=== PATIENT | male | born 1950 | race Caucasian/White ===

== ENCOUNTER 2022-05-09 18:27 | Inpatient (IN) | payer MEDICARE, OTHER ==
[2022-05-09 19:26] LABS: #Eosinphils 0.1 thou/uL (0.0-0.7); #Monocytes 0.6 thou/uL (0.11-0.59); #Neutrophils 5.2 thou/uL (1.40-6.50); %Basophils 0.4 % (0.0-1.0); %Lymphocytes 24.8 % (21.0-51.0); %Monocytes 7.9 % (0.0-10.0); %Neutrophils 65.9 % (42.0-75.0); Hemoglobin 14.9 g/dL (14.0-18.0); Mean Corpuscular HGB CONC 32.6 g/dL (32.0-36.0); Mean Corpuscular Hemoglobin 33.6 pg (27.0-31.0); Mean Platelet Volume 8.4 fL (7.4-10.4); Platelet Count 102 thou/uL (130-400); RBC Distribution Width 11.9 % (11.5-14.5); Red Blood Cell (RBC) Count 4.45 mill/uL (4.70-6.10); White Blood Cell (WBC) Count 7.9 thou/uL (4.8-10.8)
[2022-05-09 19:33] LABS: INR-International Normal Ratio 1.2; PTT 25.2 sec (22.9-36.1); Prothrombin Time 15.4 sec (12.0-14.7)
[2022-05-09] MEDS ORDERED: Heparin 25,000 units/D5W 500 ML ONE (19:39)
[2022-05-09] MEDS ORDERED: Heparin 10,000 UNITS/ 10 ML VIAL ONE (19:39)
[2022-05-09 19:40] LABS: MDiff Complete? YES; Macrocytosis SLIGHT = 6-15 cells (100X) (0-5/hpf); Platelet Morphology Comment Appears Decreased
[2022-05-09 19:54] LABS: ALT (SGPT) 18 U/L (8-55); AST (SGOT) 20 U/L (5-34); Albumin 3.8 g/dL (3.4-4.8); Alkaline Phosphatase 39 U/L (40-110); Anion Gap 14 mmol/L (10-20); BUN (Urea Nitrogen) 10 mg/dL (8.4-25.7); Bilirubin, Total 1.1 mg/dL (0.2-1.2); Calc. Creatinine Clearance 0 mL/min (70-130); Calcium 8.8 mg/dL (7.8-10.44); Carbon Dioxide 24 mmol/L (23-31); Chloride 106 mmol/L (98-107); Estimated GFR 71; Globulin 2.7 g/dL (2.4-3.5); Glucose 93 mg/dL (83-110); Potassium 4.1 mmol/L (3.5-5.1); Protein, Total 6.5 g/dL (5.8-8.1); Sodium 140 mmol/L (136-145)
[2022-05-09] MEDS ORDERED: Ondansetron PF 4 MG/2 ML Vial IVP PRN (19:59)
[2022-05-09 20:16] LABS: CKMB 1.9 ng/mL (0-6.6)
[2022-05-09 21:09] LABS: SARS-CoV-2 NAA Rapid Test Not Detected (NotDetected)
[2022-05-09 22:14] LABS: Troponin I 0.249 ng/mL (< 0.028)
[2022-05-09 22:46] VITALS: BMI 37.3
[2022-05-10] MEDS ORDERED: Heparin 10,000 UNITS/ 10 ML VIAL SLOW IVP SCH (00:15)
[2022-05-10 02:15] LABS: #Eosinphils 0.2 thou/uL (0.0-0.7); #Lymphocytes 2.5 thou/uL (1.20-3.40); #Monocytes 0.9 thou/uL (0.11-0.59); %Basophils 0.5 % (0.0-1.0); %Eosinophils 2.1 % (0.0-10.0); %Lymphocytes 33.3 % (21.0-51.0); %Monocytes 11.2 % (0.0-10.0); %Neutrophils 52.8 % (42.0-75.0); Hemoglobin 13.6 g/dL (14.0-18.0); Mean Corpuscular Hemoglobin 33.6 pg (27.0-31.0); Mean Platelet Volume 8.6 fL (7.4-10.4); Platelet Count 94 thou/uL (130-400); RBC Distribution Width 11.8 % (11.5-14.5); Red Blood Cell (RBC) Count 4.04 mill/uL (4.70-6.10); White Blood Cell (WBC) Count 7.5 thou/uL (4.8-10.8)
[2022-05-10 02:28] LABS: Anion Gap 11 mmol/L (10-20); BUN (Urea Nitrogen) 12 mg/dL (8.4-25.7); Calc. Creatinine Clearance 120 mL/min (70-130); Calcium 8.7 mg/dL (7.8-10.44); Carbon Dioxide 23 mmol/L (23-31); Chloride 108 mmol/L (98-107); Estimated GFR 82; Glucose 108 mg/dL (83-110); Potassium 3.4 mmol/L (3.5-5.1); Sodium 139 mmol/L (136-145)
[2022-05-10 02:35] LABS: PTT Greater than 250.0 sec (22.9-36.1)
[2022-05-10] MEDS ORDERED: Potassium Chloride 20 MEQ TAB PO SCH (07:30)
[2022-05-10] MEDS: Hydrochlorothiazide 25 MG TAB PO SCH ×2 (08:51→22:04)
[2022-05-10] MEDS: Heparin 25,000 units/D5W 500 ML IVPB SCH ×2 (08:55→22:13)
[2022-05-10] MEDS: hydrALAZINE 20 MG/ML VIAL SLOW IVP PRN (11:08)
[2022-05-10] MEDS: Acetaminophen 325 MG TAB PO PRN ×2 (16:08→22:12)
[2022-05-10] MEDS: Fenofibrate Nanocrystallized 145 MG TAB PO SCH (22:04)
[2022-05-10] MEDS: Triamcinolone 0.1% Cream 15 GM TUBE TOP SCH (22:11)
[2022-05-11 04:10] LABS: #Eosinphils 0.1 thou/uL (0.0-0.7); #Lymphocytes 1.9 thou/uL (1.20-3.40); #Monocytes 1.1 thou/uL (0.11-0.59); #Neutrophils 7.2 thou/uL (1.40-6.50); %Basophils 0.3 % (0.0-1.0); %Eosinophils 0.6 % (0.0-10.0); %Lymphocytes 18.5 % (21.0-51.0); %Monocytes 10.7 % (0.0-10.0); Hemoglobin 14.4 g/dL (14.0-18.0); Mean Corpuscular HGB CONC 32.8 g/dL (32.0-36.0); Mean Corpuscular Hemoglobin 33.1 pg (27.0-31.0); Mean Platelet Volume 8.6 fL (7.4-10.4); Platelet Count 110 thou/uL (130-400); RBC Distribution Width 11.8 % (11.5-14.5); Red Blood Cell (RBC) Count 4.34 mill/uL (4.70-6.10); White Blood Cell (WBC) Count 10.3 thou/uL (4.8-10.8)
[2022-05-11 04:12] LABS: Anion Gap 14 mmol/L (10-20); BUN (Urea Nitrogen) 14 mg/dL (8.4-25.7); Calc. Creatinine Clearance 110 mL/min (70-130); Calcium 8.8 mg/dL (7.8-10.44); Carbon Dioxide 22 mmol/L (23-31); Chloride 107 mmol/L (98-107); Estimated GFR 74; Glucose 112 mg/dL (83-110); Potassium 3.6 mmol/L (3.5-5.1); Sodium 139 mmol/L (136-145)
[2022-05-11] MEDS: Atorvastatin Calcium 10 MG TAB PO SCH (08:49)
[2022-05-11] MEDS: Hydrochlorothiazide 25 MG TAB PO SCH ×3 (08:49→22:00)
[2022-05-11] MEDS: Finasteride 5 MG TAB PO SCH (08:50)
[2022-05-11] MEDS: Donepezil HCl 10 MG TAB PO SCH (08:50)
[2022-05-11] MEDS: Tamsulosin HCl 0.4 MG CAP PO SCH (08:50)
[2022-05-11] MEDS: Triamcinolone 0.1% Cream 15 GM TUBE TOP SCH ×2 (08:56→23:04)
[2022-05-11] MEDS: Acetaminophen 325 MG TAB PO PRN ×2 (09:07→17:41)
[2022-05-11] MEDS: Oxybutynin ER 5 MG TAB PO SCH (09:09)
[2022-05-11] MEDS: risperiDONE 0.25 MG TAB PO SCH (09:09)
[2022-05-11] MEDS: hydrALAZINE 20 MG/ML VIAL SLOW IVP PRN (09:27)
[2022-05-11] MEDS: Heparin 25,000 units/D5W 500 ML IVPB SCH (11:50)
[2022-05-11] MEDS ORDERED: Tranexamic Acid 1,000 MG/10 ML VIAL FS SCH (17:15)
[2022-05-11] MEDS: Fenofibrate Nanocrystallized 145 MG TAB PO SCH (21:59)
[2022-05-11] MEDS: Amlodipine 5 MG TAB PO SCH (22:00)
[2022-05-12] MEDS: Heparin 25,000 units/D5W 500 ML IVPB SCH ×2 (01:31→15:49)
[2022-05-12 04:25] LABS: #Basophils 0.1 thou/uL (0.0-0.2); #Lymphocytes 1.4 thou/uL (1.20-3.40); #Monocytes 1.1 thou/uL (0.11-0.59); #Neutrophils 9.7 thou/uL (1.40-6.50); %Eosinophils 0.3 % (0.0-10.0); %Lymphocytes 11.4 % (21.0-51.0); %Monocytes 8.9 % (0.0-10.0); %Neutrophils 78.4 % (42.0-75.0); Hemoglobin 14.3 g/dL (14.0-18.0); Mean Corpuscular HGB CONC 33.7 g/dL (32.0-36.0); Mean Corpuscular Hemoglobin 33.8 pg (27.0-31.0); Mean Platelet Volume 9.6 fL (7.4-10.4); Platelet Count 108 thou/uL (130-400); Red Blood Cell (RBC) Count 4.23 mill/uL (4.70-6.10); White Blood Cell (WBC) Count 12.3 thou/uL (4.8-10.8)
[2022-05-12 04:42] LABS: Anion Gap 12 mmol/L (10-20); BUN (Urea Nitrogen) 15 mg/dL (8.4-25.7); Calc. Creatinine Clearance 127 mL/min (70-130); Calcium 9.2 mg/dL (7.8-10.44); Carbon Dioxide 21 mmol/L (23-31); Chloride 104 mmol/L (98-107); Estimated GFR 87; Glucose 103 mg/dL (83-110); Potassium 3.4 mmol/L (3.5-5.1); Sodium 134 mmol/L (136-145)
[2022-05-12] MEDS: Tamsulosin HCl 0.4 MG CAP PO SCH (09:10)
[2022-05-12] MEDS: Finasteride 5 MG TAB PO SCH (09:10)
[2022-05-12] MEDS: Hydrochlorothiazide 25 MG TAB PO SCH ×2 (09:10→20:44)
[2022-05-12] MEDS: Atorvastatin Calcium 10 MG TAB PO SCH (09:11)
[2022-05-12] MEDS: Donepezil HCl 10 MG TAB PO SCH (09:11)
[2022-05-12] MEDS: risperiDONE 0.25 MG TAB PO SCH (09:11)
[2022-05-12] MEDS: Oxybutynin ER 5 MG TAB PO SCH (11:55)
[2022-05-12] MEDS: Acetaminophen 325 MG TAB PO PRN ×2 (12:01→20:49)
[2022-05-12] MEDS: Triamcinolone 0.1% Cream 15 GM TUBE TOP SCH ×2 (15:50→20:52)
[2022-05-12] MEDS: Amlodipine 5 MG TAB PO SCH (20:44)
[2022-05-12] MEDS: Fenofibrate Nanocrystallized 145 MG TAB PO SCH (20:44)
[2022-05-13] MEDS: Heparin 25,000 units/D5W 500 ML IVPB SCH (06:12)
[2022-05-13] MEDS: Acetaminophen 325 MG TAB PO PRN ×3 (06:39→16:21)
[2022-05-13] MEDS: Atorvastatin Calcium 10 MG TAB PO SCH (07:48)
[2022-05-13] MEDS: Donepezil HCl 10 MG TAB PO SCH (07:48)
[2022-05-13] MEDS: Finasteride 5 MG TAB PO SCH (07:49)
[2022-05-13] MEDS: Tamsulosin HCl 0.4 MG CAP PO SCH (07:49)
[2022-05-13] MEDS: Hydrochlorothiazide 25 MG TAB PO SCH ×2 (07:49→20:41)
[2022-05-13] MEDS: Oxybutynin ER 5 MG TAB PO SCH (07:50)
[2022-05-13] MEDS: risperiDONE 0.25 MG TAB PO SCH (07:50)
[2022-05-13] MEDS: Triamcinolone 0.1% Cream 15 GM TUBE TOP SCH ×2 (07:51→20:43)
[2022-05-13] MEDS ORDERED: Rivaroxaban 10 MG TAB PO SCH (10:15)
[2022-05-13] MEDS ORDERED: Rivaroxaban 15 MG TAB PO SCH (10:45)
[2022-05-13] MEDS: Rivaroxaban 15 MG TAB PO SCH (20:42)
[2022-05-13] MEDS: Amlodipine 5 MG TAB PO SCH (20:42)
[2022-05-13] MEDS: Fenofibrate Nanocrystallized 145 MG TAB PO SCH (20:43)
[2022-05-13] MEDS: Polyethylene Glycol 3350 17 GM Packet PO SCH ×2 (20:43→20:46)
[2022-05-14 04:08] LABS: #Eosinphils 0.1 thou/uL (0.0-0.7); #Lymphocytes 1.7 thou/uL (1.20-3.40); #Monocytes 1.2 thou/uL (0.11-0.59); #Neutrophils 8.8 thou/uL (1.40-6.50); %Eosinophils 1.1 % (0.0-10.0); %Lymphocytes 14.3 % (21.0-51.0); %Monocytes 10.4 % (0.0-10.0); %Neutrophils 74.1 % (42.0-75.0); Hemoglobin 13.4 g/dL (14.0-18.0); Mean Corpuscular HGB CONC 33.4 g/dL (32.0-36.0); Mean Corpuscular Hemoglobin 33.7 pg (27.0-31.0); Mean Platelet Volume 9.3 fL (7.4-10.4); Platelet Count 153 thou/uL (130-400); RBC Distribution Width 11.9 % (11.5-14.5); Red Blood Cell (RBC) Count 3.98 mill/uL (4.70-6.10); White Blood Cell (WBC) Count 11.9 thou/uL (4.8-10.8)
[2022-05-14 07:19] LABS: Anion Gap 14 mmol/L (10-20); BUN (Urea Nitrogen) 18 mg/dL (8.4-25.7); Calc. Creatinine Clearance 109 mL/min (70-130); Calcium 9.7 mg/dL (7.8-10.44); Carbon Dioxide 23 mmol/L (23-31); Chloride 99 mmol/L (98-107); Estimated GFR 73; Glucose 105 mg/dL (83-110); Potassium 3.6 mmol/L (3.5-5.1); Sodium 132 mmol/L (136-145)
[2022-05-14] MEDS: Donepezil HCl 10 MG TAB PO SCH (07:59)
[2022-05-14] MEDS: Hydrochlorothiazide 25 MG TAB PO SCH ×2 (07:59→20:12)
[2022-05-14] MEDS: Tamsulosin HCl 0.4 MG CAP PO SCH (08:01)
[2022-05-14] MEDS: Atorvastatin Calcium 10 MG TAB PO SCH (08:01)
[2022-05-14] MEDS: Oxybutynin ER 5 MG TAB PO SCH (08:02)
[2022-05-14] MEDS: risperiDONE 0.25 MG TAB PO SCH (08:02)
[2022-05-14] MEDS: Finasteride 5 MG TAB PO SCH (08:02)
[2022-05-14] MEDS: Rivaroxaban 15 MG TAB PO SCH ×2 (08:03→20:15)
[2022-05-14] MEDS: Polyethylene Glycol 3350 17 GM Packet PO SCH ×2 (08:03→20:12)
[2022-05-14] MEDS: Triamcinolone 0.1% Cream 15 GM TUBE TOP SCH ×2 (08:04→20:22)
[2022-05-14] MEDS: Acetaminophen 325 MG TAB PO PRN ×2 (08:05→15:17)
[2022-05-14 13:34] VITALS: BP 154/80
[2022-05-14] MEDS ORDERED: Cyanocobalamin 1000 MCG/ML VIAL IM SCH (13:45)
[2022-05-14 16:39] LABS: Bacteria/HPF None Seen HPF (None Seen); Bilirubin Negative (Negative); Blood, Urine Negative (Negative); Clarity Clear (Clear); Glucose, Urine (Dipstick) Normal (Negative); Ketone, Urine Negative (Negative); Leukocyte Negative Leu/uL (Negative); Nitrite Negative (Negative); Protein, Urine (Dipstick) Negative (Neg-Trace); RBC/HPF 0-3 HPF (0-3); Specific Gravity, Urine 1.015 (1.002-1.036); Squamous Epithelial None Seen HPF (0-3); Urobilinogen 6 mg/dL (Less than 2); WBC/HPF 0-3 HPF (0-3)
[2022-05-14 16:43] LABS: Urine Culture Reflex No No
[2022-05-14] MEDS: Amlodipine 5 MG TAB PO SCH (20:11)
[2022-05-14] MEDS: Fenofibrate Nanocrystallized 145 MG TAB PO SCH (20:12)
[2022-05-15 04:06] LABS: #Basophils 0.1 thou/uL (0.0-0.2); #Eosinphils 0.1 thou/uL (0.0-0.7); #Lymphocytes 1.6 thou/uL (1.20-3.40); #Monocytes 1.2 thou/uL (0.11-0.59); #Neutrophils 8.3 thou/uL (1.40-6.50); %Basophils 0.5 % (0.0-1.0); %Eosinophils 0.9 % (0.0-10.0); %Lymphocytes 14.5 % (21.0-51.0); %Monocytes 10.7 % (0.0-10.0); %Neutrophils 73.4 % (42.0-75.0); Hemoglobin 13.3 g/dL (14.0-18.0); Mean Corpuscular HGB CONC 33.5 g/dL (32.0-36.0); Mean Corpuscular Hemoglobin 33.7 pg (27.0-31.0); Mean Platelet Volume 8.1 fL (7.4-10.4); Platelet Count 203 thou/uL (130-400); RBC Distribution Width 11.8 % (11.5-14.5); Red Blood Cell (RBC) Count 3.96 mill/uL (4.70-6.10); White Blood Cell (WBC) Count 11.3 thou/uL (4.8-10.8)
[2022-05-15 04:26] LABS: Anion Gap 13 mmol/L (10-20); BUN (Urea Nitrogen) 21 mg/dL (8.4-25.7); Calc. Creatinine Clearance 123 mL/min (70-130); Calcium 9.5 mg/dL (7.8-10.44); Carbon Dioxide 25 mmol/L (23-31); Chloride 98 mmol/L (98-107); Estimated GFR 84; Glucose 110 mg/dL (83-110); Potassium 3.5 mmol/L (3.5-5.1); Sodium 132 mmol/L (136-145)
[2022-05-15] MEDS: Acetaminophen 325 MG TAB PO PRN (06:51)
[2022-05-15 07:11] VITALS: TEMP 98.2
[2022-05-15] MEDS: Atorvastatin Calcium 10 MG TAB PO SCH (08:53)
[2022-05-15] MEDS: Donepezil HCl 10 MG TAB PO SCH (08:53)
[2022-05-15] MEDS: Oxybutynin ER 5 MG TAB PO SCH (08:53)
[2022-05-15] MEDS: risperiDONE 0.25 MG TAB PO SCH (08:53)
[2022-05-15] MEDS: Tamsulosin HCl 0.4 MG CAP PO SCH (08:53)
[2022-05-15] MEDS: Polyethylene Glycol 3350 17 GM Packet PO SCH (08:54)
[2022-05-15] MEDS: Finasteride 5 MG TAB PO SCH (08:54)
[2022-05-15] MEDS: Rivaroxaban 15 MG TAB PO SCH (08:54)
[2022-05-15] MEDS: Hydrochlorothiazide 25 MG TAB PO SCH (08:54)
[2022-05-15] MEDS: Triamcinolone 0.1% Cream 15 GM TUBE TOP SCH (08:54)
== END 2022-05-15 14:50 | disposition home health service (06) | DRG 164 ==
LOC: ERS 18:27 → IMCU/EMU 20:02
PROVIDERS: ADMIT Internal Medicine; ATTEND Student in an Organized Health Care Education/Training Program
PROC: 0W33XZZ Control Bleeding in Oral Cavity and Throat, External Approach (ICD-10-PCS; principal; 2022-05-12)
DX: I26.92 Saddle embolus of pulmonary artery without acute cor pulmonale (principal); D68.51 Activated protein C resistance; I24.8 Other forms of acute ischemic heart disease; R00.1 Bradycardia, unspecified; D69.6 Thrombocytopenia, unspecified; I10 Essential (primary) hypertension; K21.9 Gastro-esophageal reflux disease without esophagitis; F03.90 Unspecified dementia, unspecified severity, without behavioral disturbance, psychotic disturbance, mood disturbance, and anxiety; N40.1 Benign prostatic hyperplasia with lower urinary tract symptoms; R33.8 Other retention of urine; Z20.822 Contact with and (suspected) exposure to COVID-19; K59.00 Constipation, unspecified; E78.00 Pure hypercholesterolemia, unspecified; Z86.711 Personal history of pulmonary embolism; Z85.038 Personal history of other malignant neoplasm of large intestine; Z90.49 Acquired absence of other specified parts of digestive tract; Z98.49 Cataract extraction status, unspecified eye; Z80.41 Family history of malignant neoplasm of ovary; Z80.52 Family history of malignant neoplasm of bladder; Z86.718 Personal history of other venous thrombosis and embolism; Z91.14 Patient's other noncompliance with medication regimen
CPT/HCPCS: 36415; 71045; 80048; 80053; 81001; 82553; 83880; 84484; 85025; 85610; 85730; 93005; 93306; 96374; J0360; J1644; J2405; U0002

== ENCOUNTER 2022-05-15 22:20 | Emergency (ER) | payer MEDICARE ==
[~2022-05-15 22:20] MED LIST: Iopamidol-370 76% 500 ML 1 ML ONE
[2022-05-15] MEDS ORDERED: Tranexamic Acid 1,000 MG/10 ML VIAL ONE (23:07)
[2022-05-15 23:10] LABS: Actual Bicarbonate (HCO3v) 23 mEq/L (22-28); Analyzer IN Cardio ER; Base Excess -0.1 mEq/L (-2.0 to +3.0); Calcium, Ionized (venous) 1.05 mmol/L (1.16-1.32); Chloride (VBG) 99 mmol/L (98-106); Hemoglobin (Hb) 14.4 g/dL (12.6-17.4); Potassium (VBG) 4.26 mmol/L (3.70-5.30); Sodium 131.6 mmol/L (133-146); pH (venous) 7.47 (7.32-7.43)
[2022-05-15 23:17] LABS: Hemoglobin 13.2 g/dL (14.0-18.0); Mean Corpuscular HGB CONC 32.7 g/dL (32.0-36.0); Mean Corpuscular Hemoglobin 33.7 pg (27.0-31.0); Mean Platelet Volume 7.6 fL (7.4-10.4); Platelet Count 216 thou/uL (130-400); RBC Distribution Width 11.8 % (11.5-14.5); Red Blood Cell (RBC) Count 3.93 mill/uL (4.70-6.10); White Blood Cell (WBC) Count 9.3 thou/uL (4.8-10.8)
[2022-05-15 23:29] LABS: INR-International Normal Ratio 1.7; PTT 47.4 sec (22.9-36.1); Prothrombin Time 20.8 sec (12.0-14.7)
[2022-05-15 23:32] LABS: ALT (SGPT) 32 U/L (8-55); AST (SGOT) 46 U/L (5-34); Albumin 3.3 g/dL (3.4-4.8); Alkaline Phosphatase 42 U/L (40-110); Anion Gap 15 mmol/L (10-20); BUN (Urea Nitrogen) 26 mg/dL (8.4-25.7); Bilirubin, Total 1.2 mg/dL (0.2-1.2); Calc. Creatinine Clearance 0 mL/min (70-130); Calcium 8.7 mg/dL (7.8-10.44); Carbon Dioxide 24 mmol/L (23-31); Chloride 100 mmol/L (98-107); Estimated GFR 59; Globulin 2.9 g/dL (2.4-3.5); Glucose 106 mg/dL (83-110); Potassium 4.5 mmol/L (3.5-5.1); Protein, Total 6.2 g/dL (5.8-8.1); Sodium 134 mmol/L (136-145)
[2022-05-15 23:51] LABS: Bilirubin Negative (Negative); Blood, Urine Negative (Negative); Clarity Clear (Clear); Glucose, Urine (Dipstick) Normal (Negative); Ketone, Urine Negative (Negative); Leukocyte Negative Leu/uL (Negative); Nitrite Negative (Negative); Protein, Urine (Dipstick) Negative (Neg-Trace); Specific Gravity, Urine 1.016 (1.002-1.036); Urobilinogen 12 mg/dL (Less than 2)
[2022-05-15 23:58] LABS: Band 1 % (5-11); Eosinophils 5 % (0-10); Lymphocytes 22 % (21-51); MDiff Complete? YES; Monocytes 5 % (0-10); Neutrophil 67 % (42-75)
== END 2022-05-16 02:29 | disposition home or self-care (01) ==
LOC: ERS 22:20
DX: I26.99 Other pulmonary embolism without acute cor pulmonale (principal); E78.00 Pure hypercholesterolemia, unspecified; I10 Essential (primary) hypertension; Z79.899 Other long term (current) drug therapy
CPT/HCPCS: 36415; 70450; 71275; 81003; 82805; 83880; 84484; 85610; 85730; 93005; Q9967

== ENCOUNTER 2022-06-20 00:34 | Inpatient (IN) | payer MEDICARE, OTHER ==
[2022-06-20 01:04] LABS: #Eosinphils 0.2 thou/uL (0.0-0.7); #Lymphocytes 2.9 thou/uL (1.20-3.40); #Monocytes 0.9 thou/uL (0.11-0.59); #Neutrophils 3.8 thou/uL (1.40-6.50); %Basophils 0.5 % (0.0-1.0); %Lymphocytes 37.5 % (21.0-51.0); %Monocytes 11.4 % (0.0-10.0); %Neutrophils 48.6 % (42.0-75.0); Hemoglobin 14.2 g/dL (14.0-18.0); Mean Corpuscular HGB CONC 33.3 g/dL (32.0-36.0); Platelet Count 177 10x3/uL (130-400); RBC Distribution Width 12.3 % (11.5-14.5); Red Blood Cell (RBC) Count 4.18 mill/uL (4.70-6.10); White Blood Cell (WBC) Count 7.7 10x3/uL (4.8-10.8)
[2022-06-20] MEDS ORDERED: Atropine Sulfate 1 mg/10 ml Syringe ONE (01:07)
[2022-06-20 01:49] LABS: ALT (SGPT) 18 U/L (8-55); AST (SGOT) 17 U/L (5-34); Albumin 3.8 g/dL (3.4-4.8); Alkaline Phosphatase 38 U/L (40-110); Anion Gap 14 mmol/L (10-20); BUN (Urea Nitrogen) 17 mg/dL (8.4-25.7); Bilirubin, Total 0.8 mg/dL (0.2-1.2); Calc. Creatinine Clearance 0 mL/min (70-130); Carbon Dioxide 23 mmol/L (23-31); Chloride 105 mmol/L (98-107); Estimated GFR 62; Glucose 98 mg/dL (83-110); Potassium 3.6 mmol/L (3.5-5.1); Protein, Total 6.8 g/dL (5.8-8.1); Sodium 138 mmol/L (136-145)
[2022-06-20] MEDS ORDERED: Ondansetron PF 4 MG/2 ML Vial IVP PRN (04:34)
[2022-06-20] MEDS ORDERED: Acetaminophen 650 MG Suppository PR PRN (04:34)
[2022-06-20] MEDS ORDERED: Ondansetron ODT 4 MG TAB PO PRN (04:34)
[2022-06-20] MEDS ORDERED: Acetaminophen 325 MG TAB PO PRN (04:34)
[2022-06-20 05:45] LABS: Anion Gap 14 mmol/L (10-20); BUN (Urea Nitrogen) 14 mg/dL (8.4-25.7); Calc. Creatinine Clearance 0 mL/min (70-130); Calcium 8.9 mg/dL (7.8-10.44); Carbon Dioxide 22 mmol/L (23-31); Chloride 108 mmol/L (98-107); Estimated GFR 82; Glucose 89 mg/dL (83-110); Potassium 3.9 mmol/L (3.5-5.1); Sodium 140 mmol/L (136-145)
[2022-06-20] MEDS ORDERED: Nystatin Powder 15 GM BOT TOP PRN (06:24)
[2022-06-20] MEDS ORDERED: Electrolyte Replacement Protocol 1 EACH FS SCH (08:00)
[2022-06-20] MEDS ORDERED: Rivaroxaban 15 MG TAB PO SCH (09:00)
[2022-06-20 09:32] VITALS: BMI 35.2
[2022-06-20] MEDS: Finasteride 5 MG TAB PO SCH (10:02)
[2022-06-20] MEDS: Tamsulosin HCl 0.4 MG CAP PO SCH (10:02)
[2022-06-20] MEDS: Donepezil HCl 5 MG TAB PO SCH (10:03)
[2022-06-20] MEDS: Famotidine 20 MG TAB PO SCH ×2 (10:03→21:24)
[2022-06-20] MEDS: Furosemide 20 MG/2 ML VIAL SLOW IVP SCH (10:03)
[2022-06-20] MEDS: Oxybutynin ER 5 MG TAB PO SCH (10:10)
[2022-06-20] MEDS: risperiDONE 0.25 MG TAB PO SCH (10:10)
[2022-06-20 10:23] LABS: Magnesium 1.9 mg/dL (1.6-2.6)
[2022-06-20] MEDS: Nystatin Cream 15 GM TUBE TOP SCH ×2 (10:47→21:32)
[2022-06-20] MEDS ORDERED: Magnesium 2 GM/50 ML(in water) 2 GM in Premix Bag 1 BAG IVPB SCH (13:00)
[2022-06-20] MEDS ORDERED: Iopamidol-370 76% 500 ML 1 ML ONE (13:14)
[2022-06-20] MEDS ORDERED: Rivaroxaban 10 MG TAB PO SCH (17:00)
[2022-06-20] MEDS ORDERED: Amlodipine 5 MG TAB PO SCH (21:00)
[2022-06-20] MEDS ORDERED: Fenofibrate Nanocrystallized 145 MG TAB PO SCH (21:00)
[2022-06-20] MEDS ORDERED: Atorvastatin Calcium 10 MG TAB PO SCH (21:00)
[2022-06-20] MEDS: Hydrochlorothiazide 25 MG TAB PO SCH (21:24)
[2022-06-21 05:05] LABS: #Eosinphils 0.2 thou/uL (0.0-0.7); #Lymphocytes 2.4 thou/uL (1.20-3.40); #Monocytes 0.7 thou/uL (0.11-0.59); #Neutrophils 2.8 thou/uL (1.40-6.50); %Basophils 0.2 % (0.0-1.0); %Eosinophils 2.5 % (0.0-10.0); %Monocytes 11.6 % (0.0-10.0); %Neutrophils 46.7 % (42.0-75.0); Hemoglobin 14.1 g/dL (14.0-18.0); Mean Corpuscular HGB CONC 32.6 g/dL (32.0-36.0); Mean Corpuscular Hemoglobin 33.2 pg (27.0-31.0); Mean Platelet Volume 8.3 fL (7.4-10.4); Platelet Count 176 10x3/uL (130-400); RBC Distribution Width 12.6 % (11.5-14.5); Red Blood Cell (RBC) Count 4.24 mill/uL (4.70-6.10)
[2022-06-21 05:24] LABS: Anion Gap 10 mmol/L (10-20); BUN (Urea Nitrogen) 14 mg/dL (8.4-25.7); Calc. Creatinine Clearance 109 mL/min (70-130); Calcium 8.8 mg/dL (7.8-10.44); Carbon Dioxide 25 mmol/L (23-31); Chloride 106 mmol/L (98-107); Estimated GFR 78; Glucose 87 mg/dL (83-110); Potassium 3.2 mmol/L (3.5-5.1); Sodium 138 mmol/L (136-145)
[2022-06-21] MEDS ORDERED: Potassium Chloride 20 MEQ TAB PO SCH (09:15)
[2022-06-21] MEDS: Oxybutynin ER 5 MG TAB PO SCH (10:22)
[2022-06-21] MEDS: risperiDONE 0.25 MG TAB PO SCH (10:22)
[2022-06-21] MEDS: Famotidine 20 MG TAB PO SCH (10:22)
[2022-06-21] MEDS: Furosemide 20 MG/2 ML VIAL SLOW IVP SCH (10:22)
[2022-06-21] MEDS: Tamsulosin HCl 0.4 MG CAP PO SCH (10:23)
[2022-06-21] MEDS: Hydrochlorothiazide 25 MG TAB PO SCH (10:23)
[2022-06-21] MEDS: Donepezil HCl 5 MG TAB PO SCH (10:23)
[2022-06-21] MEDS: Finasteride 5 MG TAB PO SCH (10:23)
[2022-06-21] MEDS: Nystatin Cream 15 GM TUBE TOP SCH (10:24)
[2022-06-21 11:55] VITALS: BP 144/68; TEMP 97.4
== END 2022-06-21 14:30 | disposition home or self-care (01) | DRG 309 ==
LOC: SUATTDRO 00:34 → ERS 00:34 → 2SW 03:22
PROVIDERS: ADMIT Internal Medicine; ATTEND Internal Medicine
DX: R00.1 Bradycardia, unspecified (principal); C18.9 Malignant neoplasm of colon, unspecified; E78.5 Hyperlipidemia, unspecified; I10 Essential (primary) hypertension; F03.90 Unspecified dementia, unspecified severity, without behavioral disturbance, psychotic disturbance, mood disturbance, and anxiety; Z79.899 Other long term (current) drug therapy; Z79.01 Long term (current) use of anticoagulants; Z86.711 Personal history of pulmonary embolism; Z91.040 Latex allergy status
CPT/HCPCS: 36415; 71275; 80048; 80053; 83735; 83880; 84484; 85025; 93005; 93306; 96374; J0461; J1940; J3475; Q9967; U0003; U0005

== ENCOUNTER 2022-07-21 19:50 | Inpatient (IN) | payer MEDICARE, OTHER ==
[2022-07-21 20:44] LABS: #Lymphocytes 1.3 thou/uL (1.20-3.40); #Monocytes 1.3 thou/uL (0.11-0.59); #Neutrophils 14.2 thou/uL (1.40-6.50); %Basophils 0.3 % (0.0-1.0); %Eosinophils 0.1 % (0.0-10.0); %Lymphocytes 7.9 % (21.0-51.0); %Monocytes 7.8 % (0.0-10.0); %Neutrophils 83.9 % (42.0-75.0); Hemoglobin 15.9 g/dL (14.0-18.0); Mean Corpuscular HGB CONC 33.4 g/dL (32.0-36.0); Mean Corpuscular Hemoglobin 33.1 pg (27.0-31.0); Mean Platelet Volume 8.2 fL (7.4-10.4); Platelet Count 220 10x3/uL (130-400); RBC Distribution Width 12.3 % (11.5-14.5); Red Blood Cell (RBC) Count 4.82 mill/uL (4.70-6.10); White Blood Cell (WBC) Count 16.9 10x3/uL (4.8-10.8)
[2022-07-21 20:56] LABS: ALT (SGPT) 10 U/L (8-55); AST (SGOT) 16 U/L (5-34); Albumin 4.3 g/dL (3.4-4.8); Alkaline Phosphatase 45 U/L (40-110); Anion Gap 16 mmol/L (10-20); BUN (Urea Nitrogen) 15 mg/dL (8.4-25.7); Bilirubin, Total 1.2 mg/dL (0.2-1.2); Calc. Creatinine Clearance 0 mL/min (70-130); Calcium 9.2 mg/dL (7.8-10.44); Carbon Dioxide 20 mmol/L (23-31); Chloride 105 mmol/L (98-107); Estimated GFR 71; Globulin 3.3 g/dL (2.4-3.5); Glucose 95 mg/dL (83-110); Potassium 3.9 mmol/L (3.5-5.1); Protein, Total 7.6 g/dL (5.8-8.1); Sodium 137 mmol/L (136-145)
[2022-07-21 21:10] LABS: Bilirubin Negative (Negative); Blood, Urine Negative (Negative); Clarity Clear (Clear); Glucose, Urine (Dipstick) Normal (Negative); Ketone, Urine Negative (Negative); Leukocyte Negative Leu/uL (Negative); Nitrite Negative (Negative); Protein, Urine (Dipstick) Negative (Neg-Trace); Specific Gravity, Urine 1.021 (1.002-1.036); Urobilinogen Normal mg/dL (Less than 2)
[2022-07-21] MEDS ORDERED: Cefepime 2 GM VIAL ONE (23:00)
[2022-07-21] MEDS ORDERED: Vancomycin 1 GM/200 ML (FROZEN) BAG ONE (23:00)
[2022-07-21] MEDS ORDERED: Acetaminophen 500 MG TAB ONE (23:00)
[2022-07-21 23:08] LABS: SARS-CoV-2 NAA Rapid Test Not Detected (NotDetected)
[2022-07-22] MEDS ORDERED: Ondansetron PF 4 MG/2 ML Vial IVP PRN (03:27)
[2022-07-22 03:34] VITALS: BMI 36.2
[2022-07-22] MEDS ORDERED: Acetaminophen 325 MG TAB ONE (04:17)
[2022-07-22] MEDS: Acetaminophen 325 MG TAB PO PRN ×2 (04:21→18:30)
[2022-07-22 05:36] LABS: Amphetamine Not Detected (NotDetected); Barbiturates Screen Not Detected (NotDetected); Benzodiazepine Screen Not Detected (NotDetected); Cocaine Metabolite Screen Not Detected (NotDetected); Methadone Not Detected (NotDetected); Methamphetamine Not Detected (NotDetected); Opiate Screen Detected (NotDetected); Oxycodone Screen Not Detected (NotDetected); Phencyclidine (PCP) Not Detected (NotDetected); THC/Cannabinoid Screen Not Detected (NotDetected); Tricyclic Screen Not Detected (NotDetected)
[2022-07-22 08:12] LABS: #Lymphocytes 2.1 thou/uL (1.20-3.40); #Monocytes 1.3 thou/uL (0.11-0.59); #Neutrophils 11.8 thou/uL (1.40-6.50); %Basophils 0.1 % (0.0-1.0); %Eosinophils 0.1 % (0.0-10.0); %Lymphocytes 13.8 % (21.0-51.0); %Monocytes 8.7 % (0.0-10.0); %Neutrophils 77.3 % (42.0-75.0); Hemoglobin 14.3 g/dL (14.0-18.0); Mean Corpuscular HGB CONC 33.5 g/dL (32.0-36.0); Mean Corpuscular Hemoglobin 33.4 pg (27.0-31.0); Mean Corpuscular Volume 99.6 fl (78.0-98.0); Mean Platelet Volume 7.9 fL (7.4-10.4); Platelet Count 172 10x3/uL (130-400); RBC Distribution Width 12.5 % (11.5-14.5); Red Blood Cell (RBC) Count 4.28 mill/uL (4.70-6.10); White Blood Cell (WBC) Count 15.2 10x3/uL (4.8-10.8)
[2022-07-22 08:33] LABS: Anion Gap 10 mmol/L (10-20); BUN (Urea Nitrogen) 16 mg/dL (8.4-25.7); Calc. Creatinine Clearance 116 mL/min (70-130); Calcium 8.6 mg/dL (7.8-10.44); Carbon Dioxide 21 mmol/L (23-31); Chloride 105 mmol/L (98-107); Estimated GFR 84; Glucose 89 mg/dL (83-110); Potassium 3.4 mmol/L (3.5-5.1); Sodium 133 mmol/L (136-145)
[2022-07-22] MEDS ORDERED: Iopamidol-370 76% 500 ML 1 ML ONE (08:37)
[2022-07-22] MEDS ORDERED: Rivaroxaban 10 MG TAB PO SCH (09:00)
[2022-07-22] MEDS ORDERED: VANCOMYCIN 1.25 GM/250 ML BAG 1.25 GM in Premix Bag 1 BAG IVPB SCH (09:00)
[2022-07-22] MEDS ORDERED: Potassium Chloride 20 MEQ in Premix Bag 1 BAG IVPB SCH (10:00)
[2022-07-22] MEDS ORDERED: Piperacillin/Tazobactam 3.375 GM in Sodium Chloride 0.9% 100 ML IVPB SCH ×2 (10:00→14:00)
[2022-07-22] MEDS ORDERED: Cefepime 1 GM in Sodium Chloride 0.9% 100 ML IVPB SCH (11:00)
[2022-07-22] MEDS: metroNIDAZOLE 500 MG in Premix Bag 1 BAG IVPB SCH ×2 (14:10→21:51)
[2022-07-22 16:59] LABS: Campy jejuni + coli by PCR Negative (Negative); STEC Shiga Toxin 1+2 Negative (Negative); Salmonella spp. by PCR Negative (Negative); Shigella spp + EIEC by PCR Negative (Negative)
[2022-07-22] MEDS: Vancomycin HCl 125 MG/5 ML (BATCHED) UDCUP PO SCH (18:31)
[2022-07-23] MEDS: Vancomycin HCl 125 MG/5 ML (BATCHED) UDCUP PO SCH ×5 (00:28→23:37)
[2022-07-23] MEDS: metroNIDAZOLE 500 MG in Premix Bag 1 BAG IVPB SCH (06:16)
[2022-07-23 07:53] LABS: #Eosinphils 0.1 thou/uL (0.0-0.7); #Lymphocytes 2.2 thou/uL (1.20-3.40); #Monocytes 1.2 thou/uL (0.11-0.59); #Neutrophils 6.7 thou/uL (1.40-6.50); %Basophils 0.3 % (0.0-1.0); %Eosinophils 1.1 % (0.0-10.0); %Neutrophils 65.6 % (42.0-75.0); Hemoglobin 14.5 g/dL (14.0-18.0); Mean Corpuscular HGB CONC 33.5 g/dL (32.0-36.0); Mean Corpuscular Hemoglobin 33.5 pg (27.0-31.0); Mean Platelet Volume 8.7 fL (7.4-10.4); Platelet Count 173 10x3/uL (130-400); RBC Distribution Width 12.4 % (11.5-14.5); Red Blood Cell (RBC) Count 4.33 mill/uL (4.70-6.10); White Blood Cell (WBC) Count 10.2 10x3/uL (4.8-10.8)
[2022-07-23 08:13] LABS: ALT (SGPT) Less than 7 U/L (8-55); AST (SGOT) 12 U/L (5-34); Albumin 3.4 g/dL (3.4-4.8); Alkaline Phosphatase 36 U/L (40-110); Anion Gap 12 mmol/L (10-20); BUN (Urea Nitrogen) 14 mg/dL (8.4-25.7); Bilirubin, Total 1.2 mg/dL (0.2-1.2); Calc. Creatinine Clearance 121 mL/min (70-130); Calcium 8.9 mg/dL (7.8-10.44); Carbon Dioxide 22 mmol/L (23-31); Chloride 106 mmol/L (98-107); Estimated GFR 88; Glucose 84 mg/dL (83-110); Potassium 3.5 mmol/L (3.5-5.1); Protein, Total 6.4 g/dL (5.8-8.1); Sodium 136 mmol/L (136-145)
[2022-07-23] MEDS ORDERED: Atorvastatin Calcium 10 MG TAB PO SCH (09:00)
[2022-07-23] MEDS: Finasteride 5 MG TAB PO SCH (09:34)
[2022-07-23] MEDS: Oxybutynin ER 5 MG TAB PO SCH (09:34)
[2022-07-23] MEDS: Tamsulosin HCl 0.4 MG CAP PO SCH (09:35)
[2022-07-23] MEDS: risperiDONE 0.25 MG TAB PO SCH (09:35)
[2022-07-23] MEDS: Fenofibrate Nanocrystallized 145 MG TAB PO SCH (09:35)
[2022-07-23] MEDS: Donepezil HCl 5 MG TAB PO SCH (10:10)
[2022-07-23] MEDS ORDERED: Rivaroxaban 10 MG TAB PO SCH (17:00)
[2022-07-23] MEDS: Acetaminophen 325 MG TAB PO PRN (18:02)
[2022-07-23] MEDS ORDERED: Melatonin 3 MG TAB PO PRN (19:15)
[2022-07-23] MEDS ORDERED: Amlodipine 5 MG TAB PO SCH (21:00)
[2022-07-24 05:13] LABS: #Eosinphils 0.3 thou/uL (0.0-0.7); #Lymphocytes 2.3 thou/uL (1.20-3.40); #Monocytes 0.8 thou/uL (0.11-0.59); #Neutrophils 3.2 thou/uL (1.40-6.50); %Basophils 0.4 % (0.0-1.0); %Eosinophils 4.8 % (0.0-10.0); %Lymphocytes 34.4 % (21.0-51.0); %Monocytes 12.5 % (0.0-10.0); %Neutrophils 47.9 % (42.0-75.0); Hemoglobin 14.2 g/dL (14.0-18.0); Mean Corpuscular HGB CONC 32.6 g/dL (32.0-36.0); Mean Corpuscular Hemoglobin 32.6 pg (27.0-31.0); Mean Platelet Volume 8.3 fL (7.4-10.4); Platelet Count 172 10x3/uL (130-400); RBC Distribution Width 12.4 % (11.5-14.5); Red Blood Cell (RBC) Count 4.34 mill/uL (4.70-6.10); White Blood Cell (WBC) Count 6.7 10x3/uL (4.8-10.8)
[2022-07-24 05:28] LABS: Anion Gap 11 mmol/L (10-20); BUN (Urea Nitrogen) 15 mg/dL (8.4-25.7); Calc. Creatinine Clearance 131 mL/min (70-130); Calcium 8.8 mg/dL (7.8-10.44); Carbon Dioxide 22 mmol/L (23-31); Chloride 109 mmol/L (98-107); Estimated GFR 92; Glucose 92 mg/dL (83-110); Potassium 3.7 mmol/L (3.5-5.1); Sodium 138 mmol/L (136-145)
[2022-07-24] MEDS: Vancomycin HCl 125 MG/5 ML (BATCHED) UDCUP PO SCH ×2 (05:38→12:54)
[2022-07-24 08:44] VITALS: BP 131/83; TEMP 97.5
[2022-07-24] MEDS ORDERED: Famotidine 20 MG TAB PO SCH (09:00)
[2022-07-24] MEDS: Fenofibrate Nanocrystallized 145 MG TAB PO SCH (09:51)
[2022-07-24] MEDS: Oxybutynin ER 5 MG TAB PO SCH (09:51)
[2022-07-24] MEDS: Donepezil HCl 5 MG TAB PO SCH (09:51)
[2022-07-24] MEDS: Finasteride 5 MG TAB PO SCH (09:51)
[2022-07-24] MEDS: risperiDONE 0.25 MG TAB PO SCH (09:51)
[2022-07-24] MEDS: Tamsulosin HCl 0.4 MG CAP PO SCH (09:51)
[2022-07-24] MEDS: Acetaminophen 325 MG TAB PO PRN (12:25)
[2022-07-24] MEDS ORDERED: Atorvastatin Calcium 10 MG TAB PO SCH (21:00)
== END 2022-07-24 15:00 | disposition home or self-care (01) | DRG 871 ==
LOC: ERS 19:50 → ERHOLD 07-22 01:18 → MSONC 07-22 05:56
PROVIDERS: ADMIT Internal Medicine; ATTEND Internal Medicine
DX: A41.9 Sepsis, unspecified organism (principal); G93.41 Metabolic encephalopathy; A04.72 Enterocolitis due to Clostridium difficile, not specified as recurrent; E78.00 Pure hypercholesterolemia, unspecified; I10 Essential (primary) hypertension; K21.9 Gastro-esophageal reflux disease without esophagitis; F03.A0 Unspecified dementia, mild, without behavioral disturbance, psychotic disturbance, mood disturbance, and anxiety; Z91.040 Latex allergy status; Z88.8 Allergy status to other drugs, medicaments and biological substances; Z79.899 Other long term (current) drug therapy; Z86.711 Personal history of pulmonary embolism
CPT/HCPCS: 36415; 70450; 71045; 74177; 80048; 80053; 80306; 81003; 83605; 83630; 85025; 87040; 87086; 87324; 87449; 87505; 93005; 96374; 96375; J0692; J2405; J2543; J3370; J3370-JW; J3480; J3490; Q9967